=== PATIENT | male | born 1975 | race Caucasian/White ===

== ENCOUNTER 2017-03-29 14:56 | Emergency (ER) | payer OTHER ==
[~2017-03-29] VITALS: Ht 167.6 cm; Wt 79.5 kg
[2017-03-29 15:21] VITALS: TEMP 97.6
[2017-03-29] MEDS ORDERED: NORCO 325 MG-7.1 TAB PO (16:51)
[2017-03-29 17:18] VITALS: BP 118/78; PULSE 83
== END 2017-03-29 17:15 | disposition home or self-care (01) ==
LOC: COL.ER 14:56
DX: M54.2 Cervicalgia (principal); G89.29 Other chronic pain; K21.9 Gastro-esophageal reflux disease without esophagitis; F17.210 Nicotine dependence, cigarettes, uncomplicated
CPT/HCPCS: J1885; J2360

== ENCOUNTER 2018-04-16 14:47 | Emergency (ER) | payer OTHER ==
[~2018-04-16] VITALS: Ht 167.6 cm; Wt 67.7 kg
[~2018-04-16 14:47] MED LIST: NORCO 325 MG-7.1 TAB PO
[2018-04-16 14:50] VITALS: TEMP 98.6
[2018-04-16] MEDS ORDERED: DOXYCYCLINE 10100 MG PO (15:35)
[2018-04-16] MEDS ORDERED: ELIMITE TOP (15:35)
[2018-04-16 16:28] VITALS: BP 111/72; PULSE 87
== END 2018-04-16 16:28 | disposition home or self-care (01) ==
LOC: COL.ER 14:47
DX: J45.909 Unspecified asthma, uncomplicated (principal); R21 Rash and other nonspecific skin eruption; F17.210 Nicotine dependence, cigarettes, uncomplicated